=== PATIENT | female | born 1995 | race American Indian/Alaskan Native ===

== ENCOUNTER 2017-06-04 22:09 | Emergency (ER) | payer MEDICAID ==
[2017-06-04] MEDS ORDERED: Sodium Chloride 0.9% 1,000 ML IV SCH (22:45)
[2017-06-04 22:48] VITALS: RESP 16
--- NOTE | 2017-06-04 22:53 | ED PDOC ---
Arrival/HPI - General Chief Complaint: Abdominal Pain Time Seen by Provider: 06/04/17 22:24 Historian: Patient - History of Present Illness Narrative History of Present Illness (Text): 06/04/17 22:52 22 year old female, whose O1, presents to the emergency department complaining of a "gush of blood " vaginally earlier today. Patient reports she' s 24 weeks and is currently on Iron and prenatals. She states she was at home watching a movie today when she saw the pinkish/liquidy vaginal discharge which she said could possibly be blood. She reports no bleeding at this time. Patient saw her SUPPLY CLERK Dr. Olguin today before the symptoms occurred. Patients last ultrasound was 4 weeks ago. Patients states to have intermittent cramping and lower back pain, but denies any fever, chills, chest pain, shortness of breath, nausea, vomiting, diarrhea, urinary symptoms, neck pain, headache, dizziness, or any other complaints. SUPPLY CLERK: Dr. Olguin Time/Duration: Other (today) Symptom Onset: Sudden Symptom Course: Unchanged Activities at Onset: Light Context: Home Past Medical History - Provider Review Nursing Documentation Reviewed: Yes - Psychiatric Hx Substance Use: No Family/Social History - Physician Review Nursing Documentation Reviewed: Yes Family/Social History: No Known Family HX Smoking Status: Never Smoked Hx Alcohol Use: No Hx Substance Use: No Allergies/Home Meds Allergies/Adverse Reactions: Allergies coconut Allergy (Verified 06/04/17 22:10) ANAPHYLAXIS Home Medications: Home Meds Medication Instructions Recorded Confirmed No Known Home Med 06/04/17 06/04/17 Review of Systems - Physician Review All systems were reviewed & negative as marked: Yes - Review of Systems Constitutional: absent: Fevers, Other (Chills) Respiratory: absent: SOB Cardiovascular: absent: Chest Pain Gastrointestinal: Other (cramping ). absent: Diarrhea, Nausea, Vomiting Genitourinary Female: Vaginal Discharge (Pinkish red discharge, possibly blood) . absent: Dysuria, Frequency, Hematuria Musculoskeletal: Back Pain (lower back pain). absent: Neck Pain Neurological: absent: Headache, Dizziness Physical Exam Vital Signs Temp Pulse Resp BP Pulse Ox 06/04/17 22:10 98.3 F 83 16 102/71 99 Temperature: Afebrile Blood Pressure: Normal Pulse: Regular Respiratory Rate: Normal Appearance: Positive for: Well-Appearing, Non-Toxic, Comfortable Pain Distress: None Mental Status: Positive for: Alert and Oriented X 3 - Systems Exam Head: Present: Atraumatic, Normocephalic Pupils: Present: PERRL Extroacular Muscles: Present: EOMI Conjunctiva: Present: Normal Mouth: Present: Moist Mucous Membranes Neck: Present: Normal Range of Motion Respiratory/Chest: Present: Clear to Auscultation, Good Air Exchange. No: Respiratory Distress, Accessory Muscle Use Cardiovascular: Present: Regular Rate and Rhythm, Normal S1, S2. No: Murmurs Abdomen: Present: Normal Bowel Sounds, Other (distended consistent with gastational age). No: Tenderness, Distention, Peritoneal Signs Genitourinary/Pelvic Exam: No: Vaginal Bleeding Back: Present: Normal Inspection Upper Extremity: Present: Normal Inspection. No: Cyanosis, Edema Lower Extremity: Present: Normal Inspection. No: Edema Neurological: Present: GCS=15, CN II-XII Intact, Speech Normal Skin: Present: Warm, Dry, Normal Color. No: Rashes Psychiatric: Present: Alert, Oriented x 3, Normal Insight, Normal Concentration Medical Decision Making ED Course and Treatment: 06/04/17 22:53 Impression: 22 year old female presents complaining of vaginal discharge/bleed today. Patient is A1 Plan: -- Labs -- IV Fluid -- Urinalysis -- US age -- US Transvaginal -- Reassess and disposition Progress Notes: EXAM: US After First Trimester, Transabdominal Dictated and Authenticated by: Lotus Goldstein MD 06/05/2017 12:40 AM FINDINGS: There is a live intrauterine . Measurements of the biparietal diameter, head circumference, abdominal circumference, femur length correspond to gestational age of 24 weeks 3 days. A heart rate of 138- 140 beats per minute was obtained. The fetus is cephalic in presentation. Detailed survey of the organs is not performed at this time. The placenta is anterior in location and appears normal without evidence of previa. The cervix measures 7.1 cm in length and contains fluid within the endocervical canal measuring approximately 4 cm in width. IMPRESSION: Single live IUP. Fluid within the endocervical canal as above 06/05/17 01:34 Attempt to contact patient's primary SUPPLY CLERK Dr. Pellecchia, but was unsuccessful to get in contact. 06/05/17 02:[address] Vallejo at [facility] who recommends transfer to [facility]. Transfer: Case discussed with SUPPLY CLERK Dr. Grimaldo [facility] who is aware and agrees with the plan. Patient will be transferred to [facility] for high risk , abdominal pain, and vaginal bleed with possible premature labor. - Lab Interpretations Lab Results: 06/04/17 23:50 06/04/17 23:50 Lab Results 06/04/17 23:50: Blood Type Pending, Antibody Screen Pending, BBK History Checked No verified bt 06/04/17 23:50: WBC 6.6, RBC 3.35 L, Hgb 10.4 L, Hct 31.3 L, MCV 93.4, MCH 31.0 , MCHC 33.2, RDW 13.3, Plt Count 184, MPV 9.3 06/04/17 23:50: Beta HCG, Quant 4092.40 H 06/04/17 23:50: Sodium 137, Potassium 3.9, Chloride 105, Carbon Dioxide 25, Anion Gap 11, BUN 9, Creatinine 0.5 L, Est GFR ( Amer) > 60, Est GFR (Non -Af Amer) > 60, Random Glucose 89, Calcium 9.3, Total Bilirubin 0.2, AST 18, ALT 25, Alkaline Phosphatase 56, Total Protein 6.7, Albumin 3.3, Globulin 3.4, Albumin/Globulin Ratio 1.0 L 06/04/17 23:50: Urine Color Yellow, Urine Appearance Sl cloudy, Urine pH 7.0, Ur Specific Gamaliel <= 1.005, Urine Protein Negative, Urine Glucose (UA) Negative, Urine Ketones Negative, Urine Blood Large H, Urine Nitrate Negative, Urine Bilirubin Negative, Urine Urobilinogen 0.2, Ur Leukocyte Esterase Small H , Urine RBC 1 - 3, Urine WBC 2 - 5, Ur Epithelial Cells 1 - 3, Urine Bacteria Few I have reviewed the lab results: Yes - RAD Interpretation Radiology Orders: 06/04/17 22:37 AGE [US] Stat - Medication Orders Current Medication Orders: Sodium Chloride (Sodium Chloride 0.9%) 1,000 mls @ 100 mls/hr IV .Q10H SOHAM Last Admin: 06/05/17 00:10 Dose: 100 mls/hr eMAR Start Stop Document 06/05/17 00:10 SC (Rec: 06/05/17 00:37 SC [id number]) Intravenous Solution Start Date 06/05/17 Start Time 00:10 - Scribe Statement The provider has reviewed the documentation as recorded by the Vinayakibe Sharri Dewey Provider Scribe Attestation: All medical record entries made by the Scribe were at my direction and personally dictated by me. I have reviewed the chart and agree that the record accurately reflects my personal performance of the history, physical exam, medical decision making, and the department course for this patient. I have also personally directed, reviewed, and agree with the discharge instructions and disposition. Disposition/Present on Arrival - Present on Arrival Any Indicators Present on Arrival: No History of DVT/PE: No History of Uncontrolled Diabetes: No Urinary Catheter: No History of Decub. Ulcer: No History Surgical Site Infection Following: None - Disposition Have Diagnosis and Disposition been Completed?: Yes Diagnosis: High-risk , Abdominal pain affecting , Vaginal bleeding Disposition: Transfer [facility] Disposition Time: 02:30 Patient Problems: Current Active Problems Problem Status Onset Abdominal pain affecting Acute High-risk Acute Vaginal bleeding Acute Condition: STABLE Forms: [employer] (Macedonian)
[2017-06-04 23:59] LABS: URINE BILIRUBIN NEGATIVE (NEGATIVE); URINE BLOOD LARGE (NEGATIVE); URINE GLUCOSE (UA) NEGATIVE (NEGATIVE); URINE KETONE NEGATIVE (NEGATIVE); URINE LEUKOCYTE ESTERASE SMALL Leu/uL (NEGATIVE); URINE PROTEIN NEGATIVE mg/dL (<30 mg/dL); URINE UROBILINOGEN 0.2 E.U./dL (<1 E.U./dL)
[2017-06-05] LABS: HEMATOCRIT 31.3 % (36.0-48.0); MEAN CELL VOLUME 93.4 fl (80.0-105.0); MEAN CORPUSCULAR HGB CONC 33.2 g/dl (31.0-37.0); MEAN PLATELET VOLUME 9.3 fl (7.0-11.0); RED CELL DISTRIBUTION WIDTH 13.3 % (11.5-14.5); WHITE BLOOD COUNT 6.6 10^3/ul (4.5-11.0)
[2017-06-05 00:08] LABS: URINE APPEARANCE SL CLOUDY (CLEAR); URINE COLOR YELLOW (YELLOW)
[2017-06-05 00:10] LABS: ALKALINE PHOSPHATASE 56 U/L (38-126); ALT/SGPT 25 U/L (7-56); AST/SGOT 18 U/L (14-36); BILIRUBIN,TOTAL 0.2 mg/dL (0.2-1.3); BLOOD UREA NITROGEN 9 mg/dL (7-21); CALCIUM 9.3 mg/dL (8.4-10.5); CARBON DIOXIDE 25 mmol/L (21-33); CHLORIDE 105 mmol/L (98-107); GFR AFRICAN-AMERICAN > 60; GLUCOSE,RANDOM 89 mg/dL (70-110); POTASSIUM 3.9 mmol/L (3.6-5.0); SODIUM 137 mmol/L (132-148); TOTAL PROTEIN 6.7 g/dL (5.8-8.3)
[2017-06-05 00:13] LABS: URINE BACTERIA FEW (NEG)
[2017-06-05 02:55] VITALS: BP 112/66; PULSE 72; TEMP 98; O2SAT 98
--- NOTE | 2017-06-05 04:06 | US ---
EXAM: US After First Trimester, Transabdominal EXAM DATE/TIME: 06/04/2017 10:37 PM CLINICAL HISTORY: 22 years old, female; Pain; complicated by abdominal or pelvic pain; Lower; Second trimester; Gestational age or lmp: 24w1d; TECHNIQUE: Real-time transabdominal obstetrical ultrasound of the maternal pelvis and a second or third trimester with image documentation. COMPARISON: No relevant prior studies available. FINDINGS: There is a live intrauterine . Measurements of the biparietal diameter, head circumference, abdominal circumference, femur length correspond to gestational age of 24 weeks 3 days. A heart rate of 138- 140 beats per minute was obtained. The fetus is cephalic in presentation. Detailed survey of the organs is not performed at this time. The placenta is anterior in location and appears normal without evidence of previa. The cervix measures 7.1 cm in length and contains fluid within the endocervical canal measuring approximately 4 cm in width. The maternal ovaries are not identified. IMPRESSION: Single live IUP. Fluid within the endocervical canal as above.
== END 2017-06-05 03:13 | disposition short-term general hospital (02) ==
LOC: ED 22:09
DX: O09.892 Supervision of other high risk pregnancies, second trimester (principal); O46.8X2 Other antepartum hemorrhage, second trimester; Z3A.24 24 weeks gestation of pregnancy
CPT/HCPCS: 76815; 80053; 81001; 84702; 85027; 86850; 86900; 87086; 99284; J7040